=== PATIENT | male | born 1985 | race Caucasian/White ===

== ENCOUNTER 2021-06-06 17:49 | Emergency (ER) | payer OTHER ==
[~2021-06-06] VITALS: Ht 182.9 cm; Wt 85.0 kg
[2021-06-06 19:05] LABS: ALBUMIN 4.5 g/dL (3.2-5.0); ALKALINE PHOSPHATASE 77 u/l (38-126); ANION GAP 23 (6-22 (CALC)); BILIRUBIN, TOTAL 1.1 mg/dL (0.0-1.4); BUN 10 mg/dL (9-20); BUN/CREATININE RATIO 10 (12-20 (CALC)); CARBON DIOXIDE 23 mmol/l (22-30); CHLORIDE 100 mmol/l (95-108); ETHYL ALCOHOL 0 mg/dl (0-30); GFR > 60 ML/MIN (>=60 (CALC)); GFR FOR AFR.AMER. > 60 ML/MIN (>=60 (CALC)); LIPASE 136 u/l (23-300); POTASSIUM 4.1 mmol/l (3.5-5.1); SGOT/AST 28 u/l (17-59); SODIUM 142 mmol/l (137-146)
[2021-06-06 19:06] LABS: HEMOGLOBIN 17.2 g/dl (14.0-18.0); IMMATURE GRANULOCYTES 0.1 % (0.0-5.0); MEAN CELL VOLUME 87.3 fL CALC (80.0-100.0); MEAN CORPUSCULAR HGB 28.8 pG CALC (26.0-32.0); NEUT# 4.92 thou/uL (1.82-7.42); RED BLOOD COUNT 5.98 mill/uL (4.70-6.10); RED CELL DISTRI WIDTH 13.1 % (11.5-15.5)
[2021-06-06 19:06] LABS: URINE BLOOD DIPSTICK NEGATIVE (NEGATIVE); URINE COLOR YELLOW; URINE GLUCOSE - DIPSTICK NEGATIVE (NEGATIVE); URINE KETONE >=80 mg/dL (NEGATIVE); URINE LEUK ESTERASE NEGATIVE (NEGATIVE); URINE PROTEIN - DIPSTICK 30 mg/dL (NEG-TRACE); URINE SPECIFIC GRAVITY >=1.030
[2021-06-06 19:10] LABS: URINE BILIRUBIN - DIPSTICK NEGATIVE (NEGATIVE); URINE NITRITE - DIPSTICK NEGATIVE (Negative)
[2021-06-06 19:10] LABS: HEMATOCRIT 52.2 % (39.0-50.0)
[2021-06-06 19:12] LABS: MYOGLOBIN 48 ng/mL (0 - 121)
[2021-06-06 19:23] LABS: URINE RBC 0-2 RBC/hpf (0-5); URINE WBC 0-2 WBC/hpf (0-5)
[2021-06-06 21:30] VITALS: BP 165/68
== END 2021-06-06 22:30 | DRG 641 ==
LOC: ED 17:49
PROVIDERS: Emergency Medicine
PROC: 0T9B70Z Drainage of Bladder with Drainage Device, Via Natural or Artificial Opening (ICD-10-PCS; principal; 2021-06-06)
DX: E86.0 Dehydration (principal); F91.9 Conduct disorder, unspecified; S01.552A Open bite of oral cavity, initial encounter; X83.8XXA Intentional self-harm by other specified means, initial encounter; Y92.149 Unspecified place in prison as the place of occurrence of the external cause; Z20.822 Contact with and (suspected) exposure to COVID-19
CPT/HCPCS: J2060

== ENCOUNTER 2021-10-26 17:12 | Emergency (ER) | payer MEDICAID ==
[~2021-10-26] VITALS: Ht 182.9 cm; Wt 98.8 kg
[2021-10-26 17:48] LABS: HEMATOCRIT 40.4 % (39.0-50.0); HEMOGLOBIN 12.9 g/dl (14.0-18.0); IMMATURE GRANULOCYTES 0.1 % (0.0-5.0); MEAN CELL VOLUME 92.4 fL CALC (80.0-100.0); MEAN CORPUSCULAR HGB 29.5 pG CALC (26.0-32.0); MEAN CORPUSCULAR HGB CONC 31.9 g/dL CAL (32.0-36.0); NEUT# 4.75 thou/uL (1.82-7.42); RED BLOOD COUNT 4.37 mill/uL (4.70-6.10)
[2021-10-26] MEDS ORDERED: ZOLOFT100 MG PO (17:53)
[2021-10-26] MEDS ORDERED: PREDNISONE20 MG PO (17:53)
[2021-10-26] MEDS ORDERED: DEPAKOTE500 MG PO ×2 (17:53)
[2021-10-26] MEDS ORDERED: ABILIFY30 MG PO (17:53)
[2021-10-26 18:01] LABS: ANION GAP 8 (6-22 (CALC)); BUN 20 mg/dL (9-20); BUN/CREATININE RATIO 19 (12-20 (CALC)); CARBON DIOXIDE 26 mmol/l (22-30); CHLORIDE 112 mmol/l (95-108); CREATININE 1.1 mg/dL (0.7-1.3); GFR FOR AFR.AMER. > 60 ML/MIN (>=60 (CALC)); GFR OTHER RACES > 60 ML/MIN (>=60 (CALC)); POTASSIUM 3.7 mmol/l (3.5-5.1); SODIUM 143 mmol/l (137-146)
[2021-10-26 18:21] VITALS: BP 124/70
== END 2021-10-26 18:33 | disposition home or self-care (01) ==
LOC: ED 17:12
PROVIDERS: Nurse Practitioner
DX: L50.9 Urticaria, unspecified (principal); S00.86XA Insect bite (nonvenomous) of other part of head, initial encounter; R68.2 Dry mouth, unspecified; F20.9 Schizophrenia, unspecified; F31.9 Bipolar disorder, unspecified; Z59.00 Homelessness unspecified; W57.XXXA Bitten or stung by nonvenomous insect and other nonvenomous arthropods, initial encounter

== ENCOUNTER 2021-11-27 18:27 | Emergency (ER) | payer MEDICAID ==
[~2021-11-27] VITALS: Ht 182.9 cm; Wt 102.0 kg
[~2021-11-27 18:27] MED LIST: ABILIFY30 MG PO; DEPAKOTE500 MG PO; PREDNISONE20 MG PO; ZOLOFT100 MG PO
[2021-11-27 19:18] VITALS: BP 116/69
[2021-11-27 20:00] VITALS: BP 118/70
[2021-11-27] MEDS ORDERED: ZPAK PO (20:45)
[2021-11-27] MEDS ORDERED: ONDANSETRON4 MG PO (20:45)
== END 2021-11-27 21:05 | disposition home or self-care (01) ==
LOC: ED 18:27
DX: A08.4 Viral intestinal infection, unspecified (principal); F31.9 Bipolar disorder, unspecified; F17.200 Nicotine dependence, unspecified, uncomplicated; Z20.822 Contact with and (suspected) exposure to COVID-19

== ENCOUNTER 2021-12-12 10:23 | Emergency (ER) | payer MEDICAID ==
[~2021-12-12] VITALS: Ht 182.9 cm; Wt 109.1 kg
[2021-12-12] VITALS (7 sets, daily range): BP systolic 106–123; BP diastolic 70–84
[~2021-12-12 10:23] MED LIST changes: +ONDANSETRON4 MG PO; +ZPAK PO
[2021-12-12 11:04] LABS: HEMATOCRIT 44.2 % (39.0-50.0); HEMOGLOBIN 14.1 g/dl (14.0-18.0); IMMATURE GRANULOCYTES 0.6 % (0.0-5.0); MEAN CELL VOLUME 92.5 fL CALC (80.0-100.0); MEAN CORPUSCULAR HGB 29.5 pG CALC (26.0-32.0); MEAN CORPUSCULAR HGB CONC 31.9 g/dL CAL (32.0-36.0); NEUT# 7.54 thou/uL (1.82-7.42); RED BLOOD COUNT 4.78 mill/uL (4.70-6.10); RED CELL DISTRI WIDTH 13.3 % (11.5-15.5)
[2021-12-12 11:31] LABS: ALBUMIN 4.2 g/dL (3.2-5.0); ALKALINE PHOSPHATASE 54 u/l (38-126); ANION GAP 10 (6-22 (CALC)); BILIRUBIN, TOTAL 0.4 mg/dL (0.0-1.4); BUN 15 mg/dL (9-20); BUN/CREATININE RATIO 15 (12-20 (CALC)); CARBON DIOXIDE 24 mmol/l (22-30); CHLORIDE 108 mmol/l (95-108); GFR FOR AFR.AMER. > 60 ML/MIN (>=60 (CALC)); GFR OTHER RACES > 60 ML/MIN (>=60 (CALC)); LIPASE 64 u/l (23-300); SGOT/AST 30 u/l (17-59); SODIUM 139 mmol/l (137-146); TOTAL PROTEIN 7.4 g/dL (6.3-8.2)
== END 2021-12-12 13:06 | disposition home or self-care (01) ==
LOC: ED 10:23
PROVIDERS: Internal Medicine
DX: R07.9 Chest pain, unspecified (principal); F31.9 Bipolar disorder, unspecified; F17.210 Nicotine dependence, cigarettes, uncomplicated; F17.290 Nicotine dependence, other tobacco product, uncomplicated